=== PATIENT | male | born 1970 | race Caucasian/White ===

== ENCOUNTER 2018-03-21 11:58 | Observation (INO) | END 2018-03-22 19:31 | disposition home or self-care (01) ==

== ENCOUNTER 2018-04-03 21:30 | Emergency (ER) | END 2018-04-04 04:33 | disposition home or self-care (01) ==

== ENCOUNTER 2018-11-06 23:36 | Emergency (ER) | payer MEDICAID ==
[~2018-11-06] VITALS: Ht 167.6 cm; Wt 82.8 kg
[2018-11-06 23:42] VITALS: Ht 167.6 cm; Wt 82.8 kg
--- NOTE | 2018-11-07 01:27 | ERD ---
ER Documentation Chief Complaint Chief Complaint frontal/ top SIM x7d; vomiting+ dizzy- 'spinning' today. ROS All systems reviewed and are negative except as per history of present illness. Medications Home Meds No Active Prescriptions or Reported Meds Allergies Allergies: Coded Allergies: Penicillins (Verified Allergy, Severe, CHILDHOOD, 03/22/18) PMhx/Soc History of Surgery: No Anesthesia Reaction: No Hx Neurological Disorder: No Hx Respiratory Disorders: No Hx Cardiac Disorders: Yes (chest pain) Hx Psychiatric Problems: No Hx Miscellaneous Medical Probl: No Hx Alcohol Use: Yes (occasionally,last drink 03/31/2018) Hx Substance Use: No Hx Tobacco Use: No Physical Exam Vitals Vital Signs Date Temp Pulse Resp B/P (MAP) Pulse Ox O2 O2 Flow FiO2 Time Delivery Rate 11/06/18 97.3 77 20 144/103 99 23:42 (117) Physical Exam Const: No acute distress Head: Atraumatic Eyes: Normal Conjunctiva ENT: Normal External Ears, Nose and Mouth. Neck: Full range of motion. No meningismus. Resp: Clear to auscultation bilaterally Cardio: Regular rate and rhythm, no murmurs Abd: Soft, non tender, non distended. Normal bowel sounds Skin: No petechiae or rashes Back: No midline or flank tenderness Ext: No cyanosis, or edema Neur: Awake and alert Psych: Normal Mood and Affect Result Diagram: 11/07/18 0138 Results 24 hrs Laboratory Tests Test 11/07/18 01:38 White Blood Count 8.1 10^3/ul Red Blood Count 5.15 10^6/ul Hemoglobin 15.8 g/dl Hematocrit 45.6 % Mean Corpuscular Volume 88.5 fl Mean Corpuscular Hemoglobin 30.7 pg Mean Corpuscular Hemoglobin Concent 34.6 g/dl Red Cell Distribution Width 12.2 % Platelet Count 295 10^3/UL Mean Platelet Volume 10.2 fl Immature Granulocytes % 0.200 % Neutrophils % 54.2 % Lymphocytes % 35.4 % Monocytes % 8.0 % Eosinophils % 1.7 % Basophils % 0.5 % Nucleated Red Blood Cells % 0.0 /100WBC Immature Granulocytes # 0.020 10^3/ul Neutrophils # 4.4 10^3/ul Lymphocytes # 2.9 10^3/ul Monocytes # 0.7 10^3/ul Eosinophils # 0.1 10^3/ul Basophils # 0.0 10^3/ul Nucleated Red Blood Cells # 0.0 10^3/ul Urine Color YELLOW Urine Clarity CLEAR Urine pH 5.0 Urine Specific [place] 1.024 Urine Ketones NEGATIVE mg/dL Urine Nitrite NEGATIVE mg/dL Urine Bilirubin NEGATIVE mg/dL Urine Urobilinogen NEGATIVE mg/dL Urine Leukocyte Esterase NEGATIVE [place]/ul Urine Microscopic RBC 1 /HPF Urine Microscopic WBC 0 /HPF Urine Hemoglobin 1+ mg/dL Urine Glucose NEGATIVE mg/dL Urine Total Protein NEGATIVE mg/dl Current Medications Medications Dose Sig/[place] Start Time Status Last (Trade) Ordered Route PRN Stop Time Admin Dose Reason Admin Sodium 500 ml @ Q1H ONCE 11/07/18 11/07/18 Chloride 500 mls/hr IV 01:30 01:43 11/07/18 02:29 10 mg ONCE ONCE 11/07/18 DC 11/07/18 Metoclopramid IV 01:30 01:43 e HCl 11/07/18 01:31 (Reglan) 25 mg ONCE ONCE 11/07/18 DC 11/07/18 Diphenhydrami IV 01:30 01:43 ne HCl 11/07/18 01:31 (Benadryl) LORETTA GARCIA Nov 07, 2018 01:27
[2018-11-07] MEDS ORDERED: DIPHENHYDRAMINE 50 MG INJ IV ONE ×2 (01:30→02:00)
[2018-11-07] MEDS ORDERED: METOCLOPRAMIDE 10 MG INJ IV ONE (01:30)
[2018-11-07] MEDS ORDERED: SOD CHLORIDE 0.9% 500 ML IV ONE (01:30)
[2018-11-07] MEDS ORDERED: KETOROLAC 30 MG INJ IV STA (03:29)
[2018-11-07] MEDS ORDERED: DEXAMETHASONE 10 MG/ML 1 ML INJ IV ONE (03:30)
--- NOTE | 2018-11-07 04:02 | ERD ---
ER Documentation Chief Complaint Chief Complaint frontal/ top SIM x7d; vomiting+ dizzy- 'spinning' today. HPI 48-year-old male with no significant past medical history presenting with headache for the past 6 days. The headache was gradual in onset, starting at the top of his head, radiating to the front. He describes the pain. Over the past several days, has increased in intensity. The pain comes and goes. Currently his pain is a 9 out of 10. No alleviating or exacerbating factors. The no photophobia or phonophobia. No neck stiffness. No fevers or chills. He has had associated nausea with vomiting and dizziness. He denies any chest pain or shortness of breath. He has never had a headache like this before. She is ROS All systems reviewed and are negative except as per history of present illness. Medications Home Meds Active Scripts Ibuprofen* (Motrin*) 600 Mg Tab, 600 MG PO Q6H PRN for PAIN AND OR ELEVATED TEMP, #30 TAB Prov:RIRI COELHO MD 11/07/18 Allergies Allergies: Coded Allergies: Penicillins (Verified Allergy, Severe, CHILDHOOD, 03/22/18) PMhx/Soc History of Surgery: No Anesthesia Reaction: No Hx Neurological Disorder: No Hx Respiratory Disorders: No Hx Cardiac Disorders: Yes (Atypical CP) Hx Psychiatric Problems: No Hx Miscellaneous Medical Probl: No Hx Alcohol Use: Yes (Weekly) Hx Substance Use: No Hx Tobacco Use: No Smoking Status: Never smoker FmHx Family History: No diabetes Physical Exam Vitals Vital Signs Date Temp Pulse Resp B/P (MAP) Pulse Ox O2 O2 Flow FiO2 Time Delivery Rate 11/07/18 70 16 134/88 99 Room Air 04:07 (103) 11/07/18 78 14 144/90 97 Room Air 03:02 (108) 11/06/18 97.3 77 20 144/103 99 23:42 (117) Physical Exam Const: No acute distress Head: Atraumatic Eyes: Normal Conjunctiva, PERRLA, EOMI, no nystagmus ENT: Normal External Ears, Nose and Mouth. Neck: Full range of motion. No meningismus. Resp: Clear to auscultation bilaterally Cardio: Regular rate and rhythm, no murmurs Abd: Soft, non tender, non distended. Normal bowel sounds Skin: No petechiae or rashes Back: No midline or flank tenderness Ext: No cyanosis, or edema Neur: Awake and alert, oriented x3, cranial nerves intact, strength and sensations intact in all 4 extremities. Normal cerebellar exam. Normal gait. Psych: Normal Mood and Affect Result Diagram: 11/07/1813711/07/18137 Results 24 hrs Laboratory Tests Test 11/07/18 01:38 White Blood Count 8.1 10^3/ul Red Blood Count 5.15 10^6/ul Hemoglobin 15.8 g/dl Hematocrit 45.6 % Mean Corpuscular Volume 88.5 fl Mean Corpuscular Hemoglobin 30.7 pg Mean Corpuscular Hemoglobin Concent 34.6 g/dl Red Cell Distribution Width 12.2 % Platelet Count 295 10^3/UL Mean Platelet Volume 10.2 fl Immature Granulocytes % 0.200 % Neutrophils % 54.2 % Lymphocytes % 35.4 % Monocytes % 8.0 % Eosinophils % 1.7 % Basophils % 0.5 % Nucleated Red Blood Cells % 0.0 /100WBC Immature Granulocytes # 0.020 10^3/ul Neutrophils # 4.4 10^3/ul Lymphocytes # 2.9 10^3/ul Monocytes # 0.7 10^3/ul Eosinophils # 0.1 10^3/ul Basophils # 0.0 10^3/ul Nucleated Red Blood Cells # 0.0 10^3/ul Prothrombin Time 12.0 Sec Prothrombin Time Ratio 0.9 INR International Normalized Ratio 0.88 Activated Partial Thromboplast Time 26.9 Sec Urine Color YELLOW Urine Clarity CLEAR Urine pH 5.0 Urine Specific [place] 1.024 Urine Ketones NEGATIVE mg/dL Urine Nitrite NEGATIVE mg/dL Urine Bilirubin NEGATIVE mg/dL Urine Urobilinogen NEGATIVE mg/dL Urine Leukocyte Esterase NEGATIVE [place]/ul Urine Microscopic RBC 1 /HPF Urine Microscopic WBC 0 /HPF Urine Hemoglobin 1+ mg/dL Urine Glucose NEGATIVE mg/dL Urine Total Protein NEGATIVE mg/dl Sodium Level 141 mmol/L Potassium Level 4.0 mmol/L Chloride Level 105 mmol/L Carbon Dioxide Level 29 mmol/L Anion Gap 7 Blood Urea Nitrogen 18 mg/dl Creatinine 0.81 mg/dl Est Glomerular Filtrat Rate mL/min > 60 mL/min Glucose Level 110 mg/dl Calcium Level 9.4 mg/dl Total Bilirubin 0.7 mg/dl Direct Bilirubin 0.00 mg/dl Indirect Bilirubin 0.7 mg/dl Aspartate Amino Transf (AST/SGOT) 40 IU/L Alanine Aminotransferase (ALT/SGPT) 55 IU/L Alkaline Phosphatase 85 IU/L Troponin I < 0.012 ng/ml Total Protein 7.8 g/dl Albumin 4.4 g/dl Globulin 3.40 g/dl Albumin/Globulin Ratio 1.29 Ethyl Alcohol Level < 10.0 mg/dl Current Medications Medications Dose Sig/[place] Start Time Status Last (Trade) Ordered Route PRN Stop Time Admin Dose Reason Admin Sodium 500 ml @ Q1H ONCE 11/07/18 DC 11/07/18 Chloride 500 mls/hr IV 01:30 01:43 11/07/18 02:29 10 mg ONCE ONCE 11/07/18 DC 11/07/18 Metoclopramid IV 01:30 01:43 e HCl 11/07/18 01:31 (Reglan) 25 mg ONCE ONCE 11/07/18 DC 11/07/18 Diphenhydrami IV 01:30 01:43 ne HCl 11/07/18 01:31 (Benadryl) 25 mg ONCE ONCE 11/07/18 DC 11/07/18 Diphenhydrami IV 02:00 02:07 ne HCl 11/07/18 02:02 (Benadryl) Ketorolac 30 mg ONCE STAT 11/07/18 DC 11/07/18 Tromethamine IV 03:29 03:43 (Toradol) 11/07/18 03:30 10 mg ONCE ONCE 11/07/18 DC 11/07/18 Dexamethasone IV 03:30 03:43 (Decadron) 11/07/18 03:31 Procedures/[facility] EMERGENT LABS AND DIAGNOSTIC STUDIES: Lab Results above were reviewed and interpreted by me. CBC: no anemia or evidence of infection CMP: No evidence of electrolyte abnormality, renal failure, hypoglycemia, liver failure, or biliary obstruction Lipase: no evidence of pancreatitis Troponin within normal limits, not indicative of cardiac ischemia Lactate within normal limitswithout evidence of sepsis or tissue hypoperfusion UA: no evidence of infection 12-lead EKG was interpreted by Rigo Coelho MD: Normal Sinus Rhythm Normal axis Normal intervals Shallow T wave inversions in the anterolateral leads No acute STEMI. Radiology Results as interpreted by Radiology below were reviewed by Billy Coelho MD: Chest XR: Subsegmental atelectasis CT head: IMPRESSION: 1. No acute intracranial hemorrhage nor mass effect. No depressed calvarial fracture. 2. Age appropriate unenhanced CT appearance of the brain. MRI brain has improved sensitivity for acute infarct or subtle lesion. 3. Partially visualized chronic - appearing mild fracture deformity of the left nasal maxillary process. Clinical correlation recommended. RPTAT: HSAN Cirilo Fuchs Physician Date Time Electronically viewed and signed by Cirilo Fuchs Physician on 11/07/2018 02:53 Initial Nursing notes reviewed. Previous Medical Records requested via the Electronic Health Record. EMERGENCY DEPARTMENT COURSE / MEDICAL DECISION MAKING: Patient is presenting with likely primary headache. Considered subarachnoid hemorrhage, cervical artery dissection, meningitis, temporal arteritis, acute glaucoma, venous thrombosis or carbon monoxide poisoning but less likely based on history, physical and overall well appearance. Patient treated with IV Reglan, Toradol and Benadryl. Upon reassessment, patients symptoms have significantly improved. There is no evidence of meningitis, intracranial bleed, seizure, stroke. Patient is stable for discharge with analgesics and continued outpatient follow up with PCP. Patient's blood pressure was elevated (>120/80) but appears stable without evidence of hypertensive emergency or urgency. The patient was counseled about the risks of hypertension and urged to pursue outpatient monitoring and therapy within a week with their primary care physician. Departure Diagnosis: Primary Impression: Headache Headache type: unspecified Headache chronicity pattern: acute headache Intractability: not intractable Qualified Codes: R51 - Headache Additional Impressions: Vomiting Vomiting type: unspecified Vomiting Intractability: non-intractable Nausea presence: with nausea Qualified Codes: R11.2 - Nausea with vomiting, unspecified Dizziness Condition: Stable EKRIRI LLAMAS MD Nov 07, 2018 04:02
[2018-11-07 04:07] VITALS: BP 134/88; PULSE 70; RESP 16
[2018-11-07] MEDS ORDERED: IBUP-1542 PO (04:31)
== END 2018-11-07 04:47 | disposition home or self-care (01) ==
LOC: FTE 23:36 → E/R 11-07 04:47
DX: R51 Headache (principal); R11.2 Nausea with vomiting, unspecified; R42 Dizziness and giddiness; R07.9 Chest pain, unspecified
CPT/HCPCS: 36415; 70450; 71045; 80053; 80307; 81001; 84484; 85025; 85610; 85730; 87400; 96374; 96375; 96376; J1100; J1200; J1885; J2765; J7040; Z7502; 93005

== ENCOUNTER 2019-01-14 19:15 | Emergency (ER) | payer MEDICAID ==
[~2019-01-14] VITALS: Ht 170.2 cm; Wt 83.1 kg
[~2019-01-14 19:15] MED LIST: IBUP-1542 PO
[2019-01-14 19:30] VITALS: Ht 170.2 cm; Wt 83.1 kg
[2019-01-14] MEDS ORDERED: KETOROLAC 15 MG INJ IV STA (23:08)
--- NOTE | 2019-01-14 23:53 | ERD ---
ER Documentation Chief Complaint Chief Complaint R CP x 1week HPI This is a 48-year-old male with no significant past medical history who is presenting with nonradiating aching sharp right-sided chest wall pain and shoulder pain for the last week. 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 The patient reports that when he is sitting still, the pain is improved. When he moves the right shoulder, the pain is exacerbated. The patient is also exacerbated by palpation of the right shoulder. The patient denies shortness of breath. He has not had any nausea or vomiting. He has not had any lightheadedness or dizziness. He has not had any diaphoresis. The patient denies feeling sick recently. The patient denies fever or chills. The patient has had no headache or vision changes. The patient does not endorse neck or back pain. The patient denies changes to bowel movements or urination. The patient has had no focal deficits. The patient has had no weakness or numbness or tingling to the face or extremities. ROS All systems reviewed and are negative except as per history of present illness. Medications Home Meds Active Scripts Ibuprofen* (Motrin*) 600 Mg Tab, 600 MG PO Q6H PRN for PAIN AND OR ELEVATED TEMP, #30 TAB Prov:RIRI GREEN MD 11/07/18 Allergies Allergies: Coded Allergies: Penicillins (Unverified Allergy, Severe, CHILDHOOD, 01/15/19) PMhx/Soc History of Surgery: No Anesthesia Reaction: No Hx Neurological Disorder: No Hx Respiratory Disorders: No Hx Cardiac Disorders: No Hx Psychiatric Problems: No Hx Miscellaneous Medical Probl: No Hx Alcohol Use: Yes (Weekly) Hx Substance Use: No Hx Tobacco Use: No Smoking Status: Never smoker FmHx Family History: No diabetes Physical Exam Vitals Vital Signs Date Temp Pulse Resp B/P (MAP) Pulse Ox O2 O2 Flow FiO2 Time Delivery Rate 01/14/19 98.3 63 16 128/83 98 19:30 (98) Physical Exam Const: No acute distress Head: Atraumatic Eyes: Normal Conjunctiva ENT: Normal External Ears, Nose and Mouth. Neck: Full range of motion. No meningismus. Resp: Clear to auscultation bilaterally Cardio: Regular rate and rhythm, no murmurs Abd: Soft, non tender, non distended. Normal bowel sounds Skin: No petechiae or rashes Back: No midline or flank tenderness Ext: No cyanosis, or edema. Pinpoint tenderness in the anterior left shoulder, exacerbated by palpation and range of motion of the left shoulder. Neur: Awake and alert Psych: Normal Mood and Affect Result Diagram: 01/14/19230301/14/192303 Results 24 hrs Laboratory Tests Test 01/14/19 23:04 White Blood Count 8.5 10^3/ul Red Blood Count 5.06 10^6/ul Hemoglobin 15.4 g/dl Hematocrit 44.9 % Mean Corpuscular Volume 88.7 fl Mean Corpuscular Hemoglobin 30.4 pg Mean Corpuscular Hemoglobin Concent 34.3 g/dl Red Cell Distribution Width 12.6 % Platelet Count 281 10^3/UL Mean Platelet Volume 10.3 fl Immature Granulocytes % 0.100 % Neutrophils % 44.3 % Lymphocytes % 43.2 % Monocytes % 8.1 % Eosinophils % 3.7 % Basophils % 0.6 % Nucleated Red Blood Cells % 0.0 /100WBC Immature Granulocytes # 0.010 10^3/ul Neutrophils # 3.8 10^3/ul Lymphocytes # 3.7 10^3/ul Monocytes # 0.7 10^3/ul Eosinophils # 0.3 10^3/ul Basophils # 0.1 10^3/ul Nucleated Red Blood Cells # 0.0 10^3/ul Sodium Level 142 mmol/L Potassium Level 3.7 mmol/L Chloride Level 105 mmol/L Carbon Dioxide Level 29 mmol/L Anion Gap 8 Blood Urea Nitrogen 20 mg/dl Creatinine 0.65 mg/dl Est Glomerular Filtrat Rate mL/min > 60 mL/min Glucose Level 94 mg/dl Calcium Level 9.7 mg/dl Troponin I < 0.012 ng/ml Current Medications Medications Dose Sig/[place] Start Time Status Last (Trade) Ordered Route PRN Stop Time Admin Dose Reason Admin Ketorolac 15 mg ONCE STAT 01/14/19 DC 01/14/19 Tromethamine IV 23:08 23:17 (Toradol) 01/14/19 23:10 Procedures/[facility] MDM The patient's presentation warrants further investigation. Previous medical records, if available, were reviewed. LABS The patient's laboratory testing was obtained and reviewed. No emergent treatment was required unless described below. CBC: No E/o systemic infection or severe anemia or thrombocytopenia Chemistry: No E/o severe acidosis or alkalosis or renal failure or diabetic ketoacidosis Troponin: No E/o acute ischemia EKG EKG read by me: Rate/Rhythm: Regular rate and rhythm at a rate of 68 bpm Intervals: Normal [place]: Left shifted Impression: Nonspecific repolarization changes without evidence of acute ischemia or arrhythmia IMAGING Imaging and Radiology interpretation reviewed. CXR FINDINGS: No focal pulmonary consolidation. Mildly tortuous aorta. Cardiac and mediastinal contours otherwise unremarkable. There is no pleural effusion or pneumothorax. Bones and soft tissues are unremarkable. IMPRESSION: No acute cardiac or pulmonary findings. Electronically viewed and signed by Physician Caesar on 01/15/2019 01:11 TREATMENT/DISPOSITION The patient presents for chest wall pain. I do suspect a musculoskeletal etiology. A cardiac work-up was performed to evaluate for possible emergencies. The patient's chest xray does not reveal pneumonia or pneumothorax or pleural effusions or pulmonary edema. The patient does not have a widened mediastinum and does not have signs or symptoms concerning for thoracic aortic aneurysm or dissection. The patient does not have pneumomediastinum or signs concerning for esophageal tear or rupture. The patient has no clinical or radiographic signs of pericardial effusion or tamponade. The patient does not have pneumoperitoneum and I have decreased suspicion of viscus perforation as possible referred pain. The patient does not have a history of heart failure and I have low suspicion for this. The patient does not have a diagnosis of COPD and is not wheezing today. The patient is not tachypneic or hypoxic. The patient is breathing comfortably and without pleuritic pain. The patient is not on hormonal therapy. The patient has no history of clotting or bleeding disorders. The patient has no calf tenderness. The patient has had no hemoptysis. I have decreased suspicion for PE. The patient's troponin and EKG are reassuring. I have low suspicion for acute coronary syndrome. The patient's HEART score is equal to or less than 3. This stratifies the patient into the low risk (<1%) group for an major adverse cardiac event within the next 30 days. Shared decision making was enacted. The risks and benefits of admission and discharge were discussed with the patient and it was ultimately decided that the patient would be discharged with close outpatient follow up and evaluation for functional testing within 72 hours. The patient was treated with Toradol with some improvement of his symptoms. DISCHARGE Upon reevaluation of the patient, symptoms have improved. No emergent diagnoses were identified. At this time, I feel that the patient stable for discharge. The patient was instructed to follow-up with a primary care physician in 1-3 days. The patient will be given strict precautions with which to return to the emergency department. Prescriptions: Ibuprofen The patient's blood pressure was elevated at greater than 120/80 while in the emergency department. The patient was otherwise stable with no evidence of hypertensive urgency or emergency. The patient does not require admission for blood pressure control. I have discussed with the patient the risks of hypertension. I have instructed the patient to return to the ER for any new or worsening symptoms including chest pain, shortness of breath, headache, blurred vision, confusion, nausea, vomiting or LOC. I have advised the patient to follow up with the primary care physician for outpatient monitoring and treatment for hypertension in 1-3 days. Disclaimer: Inadvertent spelling and grammatical errors are likely due to EHR/dictation software use and do not reflect on the overall quality of patient care. Note that the electronic time recorded on this note does not necessarily reflect the actual time of the patient encounter. Departure Diagnosis: Primary Impression: Nonspecific chest pain Additional Impressions: Right-sided chest wall pain Right shoulder pain Chronicity: acute Qualified Codes: M25.511 - Pain in right shoulder Condition: Stable Patient Instructions: Chest Pain, Uncertain Cause, Shoulder Pain (Uncertain Cause) Additional Instructions: Thank you for for coming to [facility] for your care today. Please ask your nurse or provider if you have questions about your care today and do not leave until all your questions have been answered. Please use any m edications given as directed and follow-up with your doctor (or the doctor you were referred to) in the next 1-3 days. If you do not have a primary care doctor you may follow up at the [facility] or [facility] clinic (listed below). You may also use motrin and tylenol as needed for fever and/or pain unless instructed otherwise by your provider or nurse. Indications for more urgent follow-up have been discussed, but you may return to the Emergency Department at ANY time for any worrisome or worsening symptoms. If you have abdominal pain, please know that no test or exam you received is per fect and you should follow up within 8 hours for continued pain. If you had any imaging studies today, such as an X-Ray or CT Scan, these studies will be reviewed later by a radiologist. You will be called if there are important findings that were not identified today, so make sure the contact info rmation you provided at registration is correct. If you received any narcotic pain control medicine today, such as Vicodin, Morphine or Dilaudid, your coordination and judgment may be affected for a number of hours. Please do not drive or operate heavy machinery, and you may want someone to assist you at home. If you were given a prescription for narcotic medication, be aware that it is very addictive- use sparingly and only if necessary. PLEASE SEEK FURTHER EVALUATION AND MANAGEMENT AT YOUR DOCTORS OFFICE WITHIN THE NEXT 1-3 DAYS. IT IS YOUR RESPONSIBILITY TO MAKE AN APPOINTMENT FOR FOLOW-UP CARE. IF YOU HAVE A PRIMARY DOCTOR, PLEASE CALL THEIR OFFICE TO SCHEDULE AN APPOINTMENT FOR FOLLOW UP. IF YOU DO NOT HAVE A PRIMARY DOCTOR YOU CAN CALL OUR PHYSICIAN REFERRAL HOTLINE AT IF YOU CAN NOT AFFORD TO SEE A PHYSICIAN YOU CAN CHOSE FROM THE FOLLOWING [facility] CLINICS: [facility] [address] [facility] [address] [facility] [address] [facility] [facility] [address] [facility] [facility] [address] [facility]. [facility] [address] [facility] [facility]. [address] STEPHANIE CALZADA MD Jan 14, 2019 23:53
[2019-01-15] MEDS ORDERED: IBUP-1542 PO (02:00)
[2019-01-15 02:02] VITALS: BP 112/79; PULSE 57; RESP 14
== END 2019-01-15 02:12 | disposition home or self-care (01) ==
LOC: E/R 19:15
DX: R07.9 Chest pain, unspecified (principal); M25.511 Pain in right shoulder
CPT/HCPCS: 36415; 71045; 80048; 84484; 85025; 93005; 96374; J1885; Z7502